=== PATIENT | male | born 1995 | race African-American/Black ===

== ENCOUNTER 2017-07-01 06:27 | Emergency (ER) | payer SELFPAY ==
[~2017-07-01] VITALS: Ht 190.5 cm; Wt 87.1 kg
[2017-07-01 06:46] VITALS: BP 145/79
[2017-07-01] MEDS ORDERED: diphenhydrAMINE 50 MG/ML VIAL IM ONE (07:00)
[2017-07-01] MEDS ORDERED: FAMOTIDINE 20 MG TABLET. PO ONE (07:00)
[2017-07-01] MEDS ORDERED: predniSONE 20 MG TABLET PO ONE (07:00)
[2017-07-01] MEDS ORDERED: RANI150T6 PO (07:12)
[2017-07-01] MEDS ORDERED: DIPH25CA58 PO (07:12)
[2017-07-01] MEDS ORDERED: PRED50TA PO (07:12)
--- NOTE | 2017-07-01 07:13 | PHYS DOC ---
Past Medical History Past Medical History: No Pertinent History Past Surgical History: No Surgical History Smoking: Cigarettes, Greater than 1 pack/day Alcohol Use: None Drug Use: None Adult General Chief Complaint Chief Complaint: SKIN RASH/ABSCESS HPI HPI He is a 22-year-old male who is complaining of a rash that erupted yesterday on his lower extremities and abdomen. It is described as raised and itchy. It is moving from spot spot. He says he had a difficult time sleeping secondary to the itching he admits she's been scratching it somewhat since been opening the skin limit with his finger nails. He has had a history of sexually transmitted diseases when he was younger man he was secured and treated for that particular issue. He denies any joint pain or joint swelling with this particular rash. He denies any palmar or sole involvement. He denies any IV drug abuse. Patient denies also any headaches, fevers, chills, abdominal pain blood in the stool. No change in medications or sick contacts. He denies any tickborne illnesses take bites or insect bites patient also denies any changes in food, medications or exposures. He works at a [employer]. Review of Systems Review of Systems Constitutional: Denies fever or chills [] Eyes: Denies change in visual acuity, redness, or eye pain [] HENT: Denies nasal congestion or sore throat [] Respiratory: Denies cough or shortness of breath [] Cardiovascular: No additional information not addressed in HPI [] GI: Denies abdominal pain, nausea, vomiting, bloody stools or diarrhea [] : Denies dysuria or hematuria [] Musculoskeletal: Denies back pain or joint pain [] Integument: His main complaint is a skin rash Neurologic: Denies headache, focal weakness or sensory changes [] Endocrine: Denies polyuria or polydipsia [] Physical Exam Physical Exam Vital signs recorded on the chart within normal limits. Constitutional: Well developed, well nourished, no acute distress, non-toxic appearance. [] HENT: Normocephalic, oropharynx moist, [] Eyes: PERRLA, EOMI, conjunctiva normal, no discharge. [] Cardiovascular:Heart rate regular rhythm, no murmur [] Lungs & Thorax: Bilateral breath sounds clear to auscultation [] Abdomen: Bowel sounds normal, soft, no tenderness, no masses, no pulsatile masses. [] Skin: Warm, dry, no erythema, urticarial rash noted on ab and legs. no vesicles , no joint or palm or sole involvement Extremities: No tenderness, no cyanosis, no clubbing, ROM intact, no edema. [] Neurologic: Alert and oriented X 3, normal motor function, normal sensory function, no focal deficits noted. [] Psychologic: Affect normal, judgement normal, mood normal. [] Current Patient Data Vital Signs Vital Signs Date Time Temp Pulse Resp B/P (MAP) Pulse Ox O2 Delivery O2 Flow Rate FiO2 07/01/17 06:46 97.7 74 18 95 Room Air 97.7 EKG EKG [] Radiology/Procedures Radiology/Procedures [] Course & Med Decision Making Course & Med Decision Making Pertinent Labs and Imaging studies reviewed. (See chart for details) [] [place] spotted fever, Lyme Disease, Measles, Mumps, rubella Necrotizing fasciitis toxic shock syndrome, meningococcemia, erythema multiforme , Alan Jared syndrome, TEN , ITP, TTP, HSP, or disseminated gonorrhea and considered upon arrival as the diseases we need to ensure that or not missed. Patient has clear urticaria on exam over provided antihistamines and steroids for his symptoms. He only has one system involved I do not believe this is TEN or EM Kirstin Disclaimer Kirstin Disclaimer This electronic medical record was generated, in whole or in part, using a voice recognition dictation system. Departure Departure Impression: Primary Impression: Urticaria Disposition: HOME, SELF-CARE Condition: STABLE Referrals: NO PCP (PCP) Patient Instructions: Rash Additional Instructions: My discharge plan Follow up: In addition patient is asked to followup with their primary doctor, within a week for followup examination and to address patient's ongoing medical conditions. Because patient does not have a regular medical doctor, a local physician Resource Sheet will be provided to establish care primary care. Patient is advised that in the Emergency Department primary complaints are addressed and only in light of known signs and symptoms. Patient should return immediately to the emergency department if new signs and symptoms develop or patient's condition worsens in any way. At time of discharge patient was in stable condition and had verbalized understanding of the discharge instructions. Scripts Ranitidine Hcl (ZANTAC) 150 Mg Tablet 1 TAB PO BID, #20 TAB 0 Refills Prov: REBECA PLATA MD 07/01/17 Prednisone (PREDNISONE) 50 Mg Tablet 1 TAB PO DAILY, #5 TAB Prov: REBECA PLATA MD 07/01/17 Diphenhydramine Hcl (BENADRYL) 25 Mg Capsule 1 CAP PO QHS, #30 CAP 1 Refill Prov: REBECA PLATA MD 07/01/17 REBECA PLATA MD Jul 01, 2017 07:13
== END 2017-07-01 07:29 | disposition home or self-care (01) ==
LOC: ER 06:27
DX: L50.9 Urticaria, unspecified (principal); F17.210 Nicotine dependence, cigarettes, uncomplicated
CPT/HCPCS: 96372; 99283; J1200; J7512

== ENCOUNTER 2017-11-06 13:02 | Emergency (ER) | payer SELFPAY | END 2017-11-06 14:07 | disposition home or self-care (01) | LOC: ER 13:02 | DX: S60.221A Contusion of right hand, initial encounter (principal); F12.10 Cannabis abuse, uncomplicated; W22.8XXA Striking against or struck by other objects, initial encounter; Y93.89 Activity, other specified; Y92.89 Other specified places as the place of occurrence of the external cause; Y99.8 Other external cause status | CPT/HCPCS: 73130; 99284 ==